=== PATIENT | female | born 1960 ===

== ENCOUNTER → 2020-10-17 14:45 | Outpatient (REF) | payer BC, SELFPAY | LOC: ANHLAB 14:45 | PROVIDERS: Visit Provider Nurse Practitioner | DX: L72.0 Epidermal cyst (principal) | CPT/HCPCS: 88304 ==

== ENCOUNTER → 2022-08-16 07:28 | Outpatient (CLI) | payer BC, SELFPAY ==
--- NOTE | ~2022-08-16 | US_ITS ---
US abdomen complete EXAMINATION: US Abdomen Complete INDICATION: Elevated liver function tests. Diarrhea. History of endometrial cancer. PROCEDURE: Realtime High Resolution abdomen ultrasound. COMPARISON: No prior studies for comparison FINDINGS: Gallbladder within normal limits. No gallstones, pericholecystic fluid, gallbladder wall t hickening or biliary dilatation. Common bile duct measures 6 mm. Liver echotexture within normal limits without focal mass. Pancreas within normal limits. Pancreati c tail is obscured by bowel gas. Spleen is unremarkeable. Renal echotexture is within normal limits bilaterally without hydronephrosis, contour deforming mass or renal stone. Right kidney measures 10.9 cm. Left kidney measures 11.3 cm. Visualized aspects of the aorta and IVC are within normal limits. Portal vein is patent. No sonograph ic Wilkins's sign indicated by the technologist. IMPRESSION: 1: Normal abdominal ultrasound. Reviewed, dictated and finalized at location L.
== END ==
PROVIDERS: PCP Internal Medicine; Visit Provider Internal Medicine
DX: E11.9 Type 2 diabetes mellitus without complications (principal); K76.0 Fatty (change of) liver, not elsewhere classified; I10 Essential (primary) hypertension; E78.5 Hyperlipidemia, unspecified; K21.9 Gastro-esophageal reflux disease without esophagitis; K52.9 Noninfective gastroenteritis and colitis, unspecified; C54.1 Malignant neoplasm of endometrium
CPT/HCPCS: 76700